=== PATIENT | female | born 2000 | race American Indian/Alaskan Native ===

== ENCOUNTER 2019-10-12 10:55 | Outpatient (CLI) | payer BC ==
--- NOTE | 2019-10-12 11:54 | Ultrasound Report ---
LIMITED RIGHT BREAST ULTRASOUND HISTORY: 19-year-old with a palpable right breast mass.. She says that it has not changed in 2 years . COMPARISON: None. FINDINGS: Ultrasound of the right breast demonstrated an oval solid heterogeneous hypoechoic mass at 10:00 5 cm from the nipple. It correlates with the palpable mass 2.6 x 1.2 x 2.8 cm. The margin is mo stly smooth. IMPRESSION: Probably benign 2.8 cm solid mass at 10:00 5 cm from the nipple. Recommend 6 month follow -up targeted right breast ultrasound to reevaluate the mass for any change in size. BI-RADS 3: Probably Benign Signer Name: Keven Jaeger MD Signed: 10/12/2019 11:49 AM Workstation Name: [id number]
== END 2019-10-12 10:56 | disposition home or self-care (01) ==
LOC: SPVWC 10:55
PROVIDERS: ATTEND Obstetrics & Gynecology
DX: N63.11 Unspecified lump in the right breast, upper outer quadrant (principal); R92.8 Other abnormal and inconclusive findings on diagnostic imaging of breast

== ENCOUNTER 2020-06-14 14:23 | Outpatient (CLI) | payer BC ==
--- NOTE | 2020-06-14 15:02 | Ultrasound Report ---
EXAMINATION: Right Limited Breast Ultrasound, 06/14/2020 INDICATION: Patient presents for six-month follow-up of a probably benign mass in the right breast. COMPARISON: Right breast ultrasound 10/12/2019 FINDINGS: Targeted ultrasound evaluation was performed of the area of interest. There is a stable ov al circumscribed iso to hypoechoic mass in the right breast 10:00 position located 5 cm from the nipp le, currently measuring up to 2.6 x 1.2 x 2.9 cm, previously 2.6 x 1.2 x 2.8 cm. IMPRESSION: 1. An oval circumscribed mass in the right breast is unchanged from prior examination and remains pro bably benign, recommend right breast ultrasound in 6 months to ensure ongoing stability. Follow up recommendation: Short term follow up in 6 months. BI-RADS Category 3: Probably Benign. Followup in 6 months. Signer Name: Kristie Nelson MD Signed: 06/14/2020 2:57 PM Workstation Name: [id number]
== END 2020-06-14 14:24 | disposition home or self-care (01) ==
LOC: SPVWC 14:23
PROVIDERS: ATTEND Obstetrics & Gynecology
DX: N63.11 Unspecified lump in the right breast, upper outer quadrant (principal)

== ENCOUNTER 2020-11-10 10:12 | Outpatient (CLI) | payer BC | END 2020-11-10 10:13 | disposition home or self-care (01) | LOC: LABHHL 10:12 | PROVIDERS: ATTEND Surgery | DX: N60.02 Solitary cyst of left breast (principal) | CPT/HCPCS: 88305 ==